=== PATIENT | female | born 1940 | race Caucasian/White ===

== ENCOUNTER 2018-02-22 13:29 | Inpatient (IN) | payer OTHER ==
[2018-02-22] MEDS ORDERED: cefTRIAXone(*) 1 GM in NS 0.9% 50 ML* 50 ML IVPB ONE (13:35)
[2018-02-22] MEDS ORDERED: Ipratropium 0.5MG/2.5ML NEB* 0.5 MG/2.5 ML NEB.SOLN INH ONE (13:35)
[2018-02-22] MEDS ORDERED: methylPREDNISolone 125 MG* 2 ML VIAL IV ONE (13:35)
[2018-02-22] MEDS ORDERED: Albuterol 2.5 MG/3 ML NEB.SOL* (0.083%) INH ONE (13:35)
[2018-02-22] MEDS ORDERED: Azithromycin IV(*) 500 MG in NS 0.9% 250 ML* 250 ML IVPB ONE (13:35)
--- NOTE | 2018-02-22 13:39 | ED ---
Shortness of Breath - HPI Summary HPI Summary: Patient is a 77 y/o F brought in by ambulance w/ c/o SOB and cough productive of green phlegm for the past 3-4 days. She also reports some chest pain with coughing, notes SOB is worsened by exertion. EMS reports that patient had slight wheezing at upper right lobe, 98-99 o2 sat on oxygen. Patient is on 3 L o2 at home normally, increased it to 3.5 L last night. She was seen by PCP for Sx who thought she might have PNA, was prescribed prednisone and amoxicillin. No pain/swelling in legs is reported. She is a former smoker, stopped 19 years ago. PMHx of COPD endorsed, Hx of cardiac issues is denied. On triage, pain is denied, nothing is noted to aggravate/alleviate Sx, and it is noted that patient took her home breathing treatments [employer]. Home medications and allergies are reviewed. - History of Current Complaint Hx Obtained From: Patient Onset/Duration: Lasting Days - 3-4 days, Resolved Timing: Constant Current Severity: None - pain denied Dyspnea At: Exertion Aggrevating Factors: Nothing Alleviating Factors: Nothing Associated Signs & Symptoms: Cough (Productive), Chest Pain w/Cough - Allergy/Home Medications Allergies/Adverse Reactions: Allergies Allergy/AdvReac Type Severity Reaction Status Date / Time No Known Allergies Allergy Verified 04/25/15 21:22 Home Medications: Home Medications Amoxicillin PO (*) [Amoxicillin 500 MG CAP*] 500 mg PO BID 02/22/18 [History Confirmed 02/22/18] Ipratropium 0.5MG/2.5ML NEB* [Atrovent 0.5 MG NEB.SANDEEP*] 0.5 mg INH Q6H PRN 02/22 [History Confirmed 02/22/18] Sertraline* [Zoloft*] 25 mg PO DAILY 02/22/18 [History Confirmed 02/22/18] Umeclidin/Vilant 62.5 MDI(NF) [ANORO 62.5/25 Ellipta DEVICE (NF)] 1 puff INH DAILY 02/22/18 [History Confirmed 02/22/18] predniSONE TAB* [Deltasone 20 MG TAB*] 20 mg PO DAILY 02/22/18 [History Confirmed 02/22/18] PMH/Surg Hx/FS Hx/Imm Hx Respiratory History: Reports: Hx Chronic Obstructive Pulmonary Disease (COPD) Sensory History: Reports: Hx Contacts or Glasses, Hx Hearing Aid, Hx Hearing Problem Opthamlomology History: Reports: Hx Contacts or Glasses - Surgical History Surgery Procedure, Year, and Place: tubaligation - Family History Known Family History: Negative: Blood Disorder - Social History Alcohol Use: None Substance Use Type: Reports: None Smoking Status (MU): Former Smoker Type: Cigarettes Review of Systems Positive: Chest Pain - with cough Positive: Shortness Of Breath, Cough Positive: Other - NEGATIVE - BLE PAIN . Negative: Edema All Other Systems Reviewed And Are Negative: Yes Physical Exam - Summary Physical Exam Summary: Appearance: Well-appearing, Well-nourished, lying in bed Skin: Warm, dry, no obvious rash Eyes: sclera anicteric, no conjunctival pallor ENT: mucous membranes moist, pharynx appears normal Neck: Supple, nontender Respiratory: Mild respiratory distress manifested as tachypnea, patient able to talk in complete sentences. Lung sounds distant, diminished aeration. Cardiovascular: Normal S1, S2. No murmurs. Normal distal pulses in tibial and radial bilaterally. Abdomen: Soft, nontender, normal active bowel sounds present Musculoskeletal: Normal, Strength/ROM Intact Neurological: A&Ox3, awake and alert, mentation is normal, speech is fluent and appropriate Psychiatric: affect is normal, does not appear anxious or depressed Triage Information Reviewed: Yes Vital Signs On Initial Exam: Initial Vitals Temp Pulse Resp BP Pulse Ox 97.9 F 103 22 133/111 97 02/22/18 13:31 02/22/18 13:31 02/22/18 13:31 02/22/18 13:31 02/22/18 13:31 Vital Signs Reviewed: Yes Diagnostics - Laboratory Result Diagrams: 02/23/18 05:39 02/23/18 05:39 Lab Statement: Any lab studies that have been ordered have been reviewed, and results considered in the medical decision making process. - Radiology CXR Radiology Interpretation Completed By: Radiologist Summary of Radiographic Findings: IMPRESSION: #. Advanced chronic obstructive pulmonary disease and emphysema with superimposed acute. pneumonia at the RIGHT lung base. Radiographic follow-up after therapy suggested to assess. for resolution. This report was reviewed by ED physician. - EKG 1354 Cardiac Rate: NL - rate of 95 bpm EKG Rhythm: Sinus Rhythm Summary of EKG Findings: Normal EKG: NSR at 95 BPM, P waves, QRS complex, and T waves are within normal limits, T waves and intervals are normal, no ischemic changes. This is a normal EKG Course/Dx - Course Course Of Treatment: Patient is a 77 y/o F brought in by ambulance w/ c/o SOB and cough productive of green phlegm for the past 3-4 days. She also reports some chest pain with coughing, notes SOB is worsened by exertion. EMS reports that patient had slight wheezing at upper right lobe, 98-99 o2 sat on oxygen. Patient is on 3 L o2 at home normally, increased it to 3.5 L last night. She was seen by PCP for Sx who thought she might have PNA, was prescribed prednisone and amoxicillin. No pain/swelling in legs is reported. She is a former smoker, stopped 19 years ago. PMHx of COPD endorsed, Hx of cardiac issues is denied. On physical exam, mild respiratory distress manifested as tachypnea, patient able to talk in complete sentences. Lung sounds distant, diminished aeration. Normal EKG: NSR at 95 BPM, P waves, QRS complex, and T waves are within normal limits, T waves and intervals are normal, no ischemic changes. This is a normal EKG. Labs showed WBC 17, Hgb 11.8, MPV 6.4, absolute neuts 13.7, absolute monos 2.1, sodium 127, chloride 89, creatinine 0.46, BUN/ creatinine 23.9, glucose 108, lactic acid 0.9, trop 0.01, BNP 46. Influenza A, B was negative. CXR IMPRESSION: #. Advanced chronic obstructive pulmonary disease and emphysema with superimposed acute. pneumonia at the RIGHT lung base. Radiographic follow-up after therapy suggested to assess. for resolution. During ED course, patient received solu-medrol 125 mg IV ED ONCE, Xopenex 1.25 mg/0.5 Ml Neb.sandeep 1.25 mg INH ED ONCE ONE, Atrovent 0.5 mg Neb.Sandeep 0.5 mg INH ED ONCE ONE, ceftriaxone sodium 1 gm in sodium chloride 50 mls @ 100 mls/hr IVPB ED ONCE ONE, Azithromycin 500 mg in sodium chloride 250 mls @ 250 mls/hr IVPB ED ONCE ONE, and albuterol 2.5 mg INH ED ONCE ONE. Patient's case was discussed with Dr. Schmid at 1750, Dr. Schmid accepts patient for admission. - Diagnoses Provider Diagnoses: Pneumonia involving right lung, COPD exacerbation - Physician Notifications Discussed Care of Patient With: Tamiko Schmid Time Discussed With Above Provider: 17:50 Instructed by Provider To: Other - Patient's case was discussed with Dr. Schmid at 1750, Dr. Schmid accepts patient for admission. Discharge - Sign-Out/Discharge Documenting (check all that apply): Patient Departure - admit - Discharge Plan Condition: Good Disposition: ADMITTED TO [facility] - Billing Disposition and Condition Condition: GOOD Disposition: Admitted to [facility] - Attestation Statements Document Initiated by Erica: Yes Documenting Scribe: JAMIL TIAN Provider For Whom Erica is Documenting (Include Credential): SUSHANT SONG MD Scribe Attestation: JAMIL Zuñiga , scribed for SUSHANT SONG MD on 02/23/18 at 1014. Scribe Documentation Reviewed: Yes Provider Attestation: The documentation as recorded by the JAMIL morton accurately reflects the service I personally performed and the decisions made by SUSHANT mondragon MD Status of Scribe Document: Viewed
--- OUTSIDE RECORDS SUMMARY | 2018-02-22 13:51 | XMS REPORT | Continuity of Care Document ---
:1940 External Reference #:[id number] Author Name Christy Frias Care Team Providers Name Role Phone Patricia Valencia F.NJose Ramon Primary Care Physician Unavailable Payers Type Date Identification Numbers Payment Provider Subscriber Policy Number: [id number] [employer] (Ojennifer Wilcox Case Group Name: [id number] [address] [address] PayID: [id number] [place] [address] Advance Directives Description No Information Available Problems Description No Information Family History Date Family Member(s) Problem(s) Comments General Cancer Siblings 11 2 brothers, 2 sisters living Social History Type Date Description Comments Sex Unknown Marital Status Lives With Alone Daughters live nearby Lives With 1 dog Family's, visits Occupation Retired Occupation Territory Sales Representative [facility] Occupation [employer] type[employer] Occupation [employer] Tobacco Use Start: Unknown Former Cigarette 40+ years End: Smoker 1 Pack Daily Smoking Status Reviewed: 02/09/18 Former Cigarette 40+ years Smoker 1 Pack Daily ETOH Use Denies alcohol use Tobacco Use Start: Unknown Patient is a former End: Unknown smoker Recreational Drug Use Denies Drug Use Exercise Type/Frequency Does not exercise Limited by difficulty breathing Allergies, Adverse Reactions, Alerts Description No Known Drug Allergies Medications Medication Date Status Form Strength Qnty SIG Indications Ordering Provider Symbicort Active Aerosol 160-4.5mcg 2 puffs by Annie 000 /Act mouth two Patricia, times per F.N.P. day Spiriva Active Capsules 18mcg 1 puff by Annie Handihaler 000 mouth one Patricia, time per F.N.P. day Sertraline HCL Active Tablets 25mg 1 by mouth [place], 000 one time Patricia, per day F.N.P. Ventolin HFA Active Aerosol 108(90Base Inhale as [place], 000 ) mcg/Act needed Patricia, F.N.P. Ipratropium Active Solution 0.5-2.5(3) Inhale via Verduin, [place] 000 mg/3ML nebulizer CARL Myers rol Sulfate four times per day Essential Oils Active Unknown 000 Immunizations Description No Information Available Vital Signs Date Vital Result Comment 02/09/2018 10:46am Height 64 inches 5'4" Weight 115.38 lb Heart Rate 86 /min BP Systolic Sitting 162 mmHg Rue reg cuff BP Diastolic Sitting 68 mmHg Rue reg cuff Respiratory Rate 20 /min O2 % BldC Oximetry 95 % On O2 at 3 via portable tank BMI (Body Mass Index) 19.8 kg/m2 Neck Circumference in inches 14.5 Results Test Date Facility Test Result H/L Range Note CBC Auto Diff 07/20/2012 [facility] White Blood 8.7 10^3/uL 4.8-10.[address] [place] [address] [phone] Red Blood Count 4.57 10^6/uL 4.0-5.4 Hemoglobin 13.3 g/dL 12.0-16.0 Hematocrit 40 % 35-47 Mean Corpuscular Volume 88 fL 80-97 Mean Corpuscular Hemoglobin 29 pg 27-31 Mean Corpuscular HGB Conc 33 g/dL 31-36 Red Cell Distribution Width 14 % 10.5-15 Platelet Count 233 10^3/uL 150-450 Mean Platelet Volume 7 um3 Low 7.4-10.4 Abs Neutrophils 6.6 10^3/uL 1.5-7.7 Abs Lymphocytes 1.1 10^3/uL 1.0-4.8 Abs Monocytes 0.8 10^3/uL 0-0.8 Abs Eosinophils 0.1 10^3/uL 0-0.6 Abs Basophils 0 10^3/uL 0-0.2 Abs Nucleated RBC 0 10^3/uL Granulocyte % 76.8 % 38-83 Lymphocyte % 12.8 % Low 25-47 Monocyte % 8.8 % 1-9 Eosinophil % 1.3 % 0-6 Basophil % 0.3 % 0-2 Nucleated Red Blood Cells % 0 Basic Metabolic Panel 07/20/2012 [facility] Sodium 138 mmol/L 133-145 [address] [place] [address] [phone] Potassium 3.8 mmol/L 3.5-5.0 Chloride 102 mmol/L 101-111 Co2 Carbon Dioxide 28.0 mmol/L 22-32 Anion Gap 8.0 mmol/L 2-11 Glucose 137 mg/dL High 70-100 Blood Urea Nitrogen 11 mg/dL 6-24 Creatinine 0.70 mg/dL 0.50-1.40 BUN/Creatinine Ratio 15.7 8-20 Calcium 9.2 mg/dL 8.1-9.9 Egfr Non- 83.0 >60 Egfr 106.7 >60 1 Inr/Protime 07/20/2012 [facility] Inr 0.92 0.87-0.97 [address] [place] [address] [phone] 1 Because ethnic data is not always readily available, this report includes an eGFR for both -Americans and non- Americans. The National Kidney Disease Education Program (NKDEP) does not endorse the use of the MDRD equation for patients that are not between the ages of 18 and 70, are , have extremes of body size, muscle mass, or nutritional status, or are non- or non-. According to the National Kidney Foundation, irrespective of diagnosis, the stage of the disease is based on the level of kidney function: Stage Description GFR(mL/min/1.73 m(2)) 1 Kidney damage with normal or decreased GFR 90 2 Kidney damage with mild decrease in GFR 60-89 3 Moderate decrease in GFR 30-59 4 Severe decrease in GFR 15-29 5 Kidney failure <15 (or dialysis) Procedures Date Code Description Status 07/07/2017 14699 Biopsy Skin Lesion Single Completed 07/20/2012 80321 RT Heart Catheritization; Measurement Of Oxygen Saturation Completed 07/20/2012 26728 Echocardiogram, Limited Study Completed 06/28/2012 13492 ECHO Transthoracic, Real-Time 2D With Doppler And Color Completed Flow 06/09/2012 87388 EKG Tracing & Interpretation Completed Encounters Type Date Location Provider Dx Diagnosis Office Visit 04/28/2015 [facility] Grace MarcosKatherin Abbasi, J44.1 Chronic obstructive 12:46p Assoc,pc N.P. pulmonary disease w Hospitalists (acute) exacerbation Office Visit 04/27/2015 [facility] Grace MarcosKatherin Elroy, J44.1 Chronic obstructive 12:45p Assoc,pc NKatherinP. pulmonary disease w Hospitalists (acute) exacerbation Office Visit 04/26/2015 [facility] Jignesh Orona, J44.1 Chronic obstructive 12:44p Assoc,bert Webber pulmonary disease w Hospitalists (acute) exacerbation Office Visit 06/09/2012 [facility], 496 COPD Airway 2:00p Drew Webber, [facility], Obstruction Chronic FSCAI Not Class Elsewhere 272.4 Hyperlipidemia Other Unspec Plan of Treatment 02/09/2018 - Micheline Knox MDJ44.9 Chronic obstructive pulmonary disease, unspecifiedNew Orders:PFTW/Spirometry Vol Pre/Post Bronchdilat Dlco Complete, Ordered: Minute Walk, Ordered: 18R09.02 [id number] Pulmonary hypertension, unspecified
[2018-02-22 14:09] LABS: Hematocrit 35 % (35-47); Hemoglobin 11.8 g/dl (12.0-16.0); Mean Corpuscular HGB Conc 34 g/dl (31-36); Mean Corpuscular Hemoglobin 29 pg (27-31); Mean Corpuscular Volume 85 fL (80-97); Mean Platelet Volume 6.4 fL (7.4-10.4); Platelet Count 337 10^3/ul (150-450); Red Blood Count 4.09 10^6/ul (4.00-5.40); Red Cell Distribution Width 13 % (10.5-15)
[2018-02-22] MEDS ORDERED: NS 0.9% 50 ML* 50 ML ONE (14:16)
[2018-02-22] MEDS ORDERED: Levalbuterol 1.25MG/0.5ML NEB INH ONE (14:16)
[2018-02-22 14:21] LABS: EGFR Non-African American 132.4 (>60)
[2018-02-22 14:56] LABS: ABS Basophils 0 10^3/ul (0-0.2); ABS Eosinophils 0 10^3/ul (0-0.6); ABS Lymphocytes 1.1 10^3/ul (1.0-4.8); ABS Monocytes 2.1 10^3/ul (0-0.8); ABS Neutrophils 13.7 10^3/ul (1.5-7.7); ABS Nucleated RBC 0 10^3/ul; Eosinophil % 0.2 %; Lymphocyte % 6.5 %; Nucleated Red Blood Cells % 0
[2018-02-22] MEDS ORDERED: cefTRIAXone(*) 1 GM ADVAN/BAG ONE (16:09)
[2018-02-22] MEDS ORDERED: Acetaminophen TAB* 325 MG PO PRN (19:48)
[2018-02-22] MEDS ORDERED: Ipratropium 0.5MG/2.5ML NEB* 0.5 MG/2.5 ML NEB.SOLN INH PRN (19:51)
[2018-02-22] MEDS ORDERED: Levalbuterol 1.25MG/0.5ML NEB INH PRN (19:51)
[2018-02-22] MEDS: NS 0.9% 1000 ML* 1,000 ML IV SCH (21:57)
[2018-02-22] MEDS: Heparin VIAL(*) 5000 UNITS/ML VIAL (FIVE THOUSAND) SUBCUT SCH (21:57)
[2018-02-22 22:30] LABS: Urine Appearance Clear; Urine Blood Negative (Negative); Urine Color Straw; Urine Ketones 1+ (Negative); Urine Protein Negative (Negative); Urine Red Blood Cell Trace(0-2/hpf) (Absent); Urine Urobilinogen Negative (Negative); Urine White Blood Cell Trace(0-5/hpf) (Absent)
[2018-02-22] MEDS ORDERED: NS 0.9% 500 ML* 500 ML IV ONE (22:43)
[2018-02-22] MEDS ORDERED: hydrALAZINE IV* 20 MG/ML VIAL ONE (22:48)
[2018-02-22] MEDS: hydrALAZINE IV* 20 MG/ML VIAL IV SLOW PU PRN (22:50)
--- NOTE | 2018-02-23 04:22 | HP ---
CC: [facility], Patricia Jerome NP * HISTORY AND PHYSICAL: DATE OF ADMISSION: 02/22/18 PROVIDER: Eli Castellon NP PRIMARY CARE PROVIDER: Patricia Jerome NP ATTENDING PHYSICIAN WHILE IN THE HOSPITAL: Dr. Elizabeth García * (dictated by Eli Castellon NP). CHIEF COMPLAINT: 1. Shortness of breath. 2. Cough. HISTORY OF PRESENT ILLNESS: Ms. Price is a 77-year-old female with a past medical history of COPD who presented to the emergency room with a 3 to 4-day history of increased shortness of breath. The patient reports that she was seen at her primary care office clinic last Wednesday and placed on amoxicillin and prednisone and has been taking them but has had no improvement in her shortness of breath and cough. So, she presented to the emergency room for further evaluation. She does report that her cough is green to clear and has increased from her baseline. She does have a baseline productive cough with clear secretions due to her COPD. She also reports a fever over the past several days. She denies any chills. She does also report increased fatigue and chest pain with cough and deep breath. She denies any nausea, vomiting, diarrhea. Denies any abdominal pain. Denies any gross hematuria or dysuria. Denies any focal weakness or sensory loss. Denies any visual complaints. Denies any dysphagia, arthralgias or myalgias. Denies any rashes or lesions. Denies any psychosis. Does report some increased anxiety. Given her symptoms of increased shortness of breath, we were asked to see and evaluate her by the emergency room. PAST MEDICAL HISTORY: COPD. PAST SURGICAL HISTORY: D and C. HOME MEDICATIONS: 1. Prednisone 20 mg p.o. daily. 2. Atrovent nebulizer 0.5 mg p.o. inhaled q.6 hours as needed. 3. Amoxicillin 500 mg p.o. b.i.d. 4. Anoro 1 puff inhaled daily. 5. Sertraline 25 mg p.o. daily. ALLERGIES: No known drug allergies. FAMILY HISTORY: Mother and father both with a history of DE. No reported diabetes. Brother with a history of esophageal cancer. Sisters with a history of breast and cervical cancer. SOCIAL HISTORY: The patient quit smoking approximately 18 years ago. Prior to that, she smoked a pack a day for several years. Denies any alcohol or illicit drug use. She lives alone. Surrogate decision maker in the event she is unable to make her own decision is her daughter, Michelle Price. Her phone number is [phone]. She is a full code. REVIEW OF SYSTEMS: There has been no documented fever. The patient does report fevers of 101 at home. Denies any loss of appetite. Does report chest pain with cough and deep breath. Denies any edema. Does report productive cough of green and clear secretions, increased from baseline. Denies any hemoptysis. Does report significant shortness of breath. Denies any nausea, vomiting, diarrhea. Denies any abdominal pain. Denies any hematuria, dysuria. Denies any focal weakness or sensory loss. Denies any visual complaints. Denies any dysphagia. Denies any arthrosis, myalgias, rashes or lesions or prior psychosis. Does report increased anxiety. PHYSICAL EXAMINATION GENERAL: At this time, Ms. Price is a 77-year-old female. She appears in mild respiratory distress, sitting on the stretcher in the emergency room. VITAL SIGNS: Blood pressure 176/93, heart rate was 104, O2 saturations 97%, respirations were 20 to 22, temperature was 97.5. HEENT: Head is atraumatic, normocephalic. Eyes: EOMs are intact. Sclerae anicteric and not pale. Oral mucosa is dry. NECK: Supple. LUNGS: Diminished bilaterally with a few scattered expiratory wheezes and a few scattered rhonchi in the bases. No rales. CARDIAC: S1, S2. Regular rate and rhythm. No murmurs, rubs, or gallops. ABDOMEN: Soft and nontender. Bowel sounds are present x4. EXTREMITIES: Pulses are +2 bilaterally. No edema. She is able to move all 4 extremities with 5/5 strength. She is awake, alert and oriented x3. NEUROLOGIC: Speech is clear. Mentation is intact. No gross focal deficits. SKIN: Intact. DIAGNOSTIC STUDIES/LAB DATA: WBCs are 17.0, RBCs 4.09, hemoglobin 11.8, hematocrit was 35. Sodium 127, potassium 4.4, chloride 89, carbon dioxide was 30. Anion gap was 8, BUN was 11. Creatinine 0.46. Lactic acid was 0.9. Calcium 9.9. AST was 19. ALT was 17. C-reactive protein was 191.47. BNP was 46. Procalcitonin was.1. She was negative for flu A and B. She had a chest x-ray, radiologist impression: Advanced chronic obstructive pulmonary disease and emphysema with superimposed acute pneumonia in the right lung base. The patient currently has a urine that is pending. Blood cultures are pending. Sputum culture is pending. ASSESSMENT AND PLAN: Ms. Price is a 77-year-old female who presented to the emergency room with complaints of increased shortness of breath for 3 to 4 days and failed outpatient antibiotic and prednisone treatment. She will be admitted inpatient status for: 1. Pneumonia. Chest x-ray shows right lower lobe pneumonia. She does have an elevated white count. I suspect that this is due to steroid use she was receiving for the past several days as an outpatient as there is no shift or bands, but this also could have elevation due to her pneumonia. Blood cultures are currently pending. I will treat her with ceftriaxone and azithromycin. UA and culture are currently pending. Urine for Legionella and Strep pneumoniae are currently pending. I will place her on prednisone 40 mg p.o. daily starting tomorrow. She can have Xopenex nebulizer as needed for shortness of breath. 2. Chronic obstructive pulmonary disease. We will continue her on prednisone and nebulizers as needed for shortness of breath and O2 support to maintain O2 saturations above 92. 3. Depression/anxiety. She will continue on sertraline as previously prescribed. 4. FEN. She can have a regular diet. 5. Code status is full code. 6. DVT prophylaxis: I will place her on heparin subcu. TIME SPENT: Time spent on this admission was 60 minutes, greater than half that time was spent [id number] with the patient and her daughter obtaining my history and physical, the other half the time was spent going over my plan of care and implementing my plan of care. I have discussed this with my attending, Dr. Elizabeth García; she is in agreement with my plan. ELI CASTELLON, ALTAGRACIA [id number]/[facility] #: [id number] ADRIANNE
[2018-02-23] MEDS: NS 0.9% 1000 ML* 1,000 ML IV SCH ×2 (04:33→15:29)
[2018-02-23] MEDS: Heparin VIAL(*) 5000 UNITS/ML VIAL (FIVE THOUSAND) SUBCUT SCH ×3 (05:22→21:04)
[2018-02-23 06:11] LABS: Hematocrit 32 % (35-47); Hemoglobin 10.7 g/dl (12.0-16.0); Mean Corpuscular HGB Conc 34 g/dl (31-36); Mean Corpuscular Hemoglobin 29 pg (27-31); Mean Corpuscular Volume 86 fL (80-97); Mean Platelet Volume 6.7 fL (7.4-10.4); Platelet Count 296 10^3/ul (150-450); Red Blood Count 3.71 10^6/ul (4.00-5.40); Red Cell Distribution Width 13 % (10.5-15); White Blood Count 12.3 10^3/ul (3.5-10.8)
[2018-02-23 06:16] LABS: ABS Basophils 0 10^3/ul (0-0.2); ABS Eosinophils 0 10^3/ul (0-0.6); ABS Lymphocytes 0.7 10^3/ul (1.0-4.8); ABS Monocytes 1.6 10^3/ul (0-0.8); ABS Nucleated RBC 0 10^3/ul; Eosinophil % 0 %; Lymphocyte % 5.5 %; Nucleated Red Blood Cells % 0
[2018-02-23] MEDS: PTO:Umeclidin/Vilant 62.5 MDI 62.5/25 mcg 14 INH ELLIPTA DEVICE INH SCH ×2 (07:50→10:15)
[2018-02-23 09:41] LABS: EGFR Non-African American 151.2 (>60)
[2018-02-23] MEDS: predniSONE TAB* 20 MG PO SCH (09:55)
[2018-02-23] MEDS: Sertraline* 25 MG TAB PO SCH (09:56)
[2018-02-23] MEDS ORDERED: cefTRIAXone(*) 1 GM in NS 0.9% 50 ML* 50 ML IVPB ONE (14:00)
[2018-02-23] MEDS: Azithromycin IV(*) 500 MG in NS 0.9% 250 ML* 250 ML IVPB SCH (15:29)
--- NOTE | 2018-02-23 18:27 | PN ---
Subjective Date of Service: 02/23/18 Interval History: Denies chest pain, reports shortness of breath is improving. Denies abd pain n/ v/d. Denies fever or chills Family History: Unchanged from Admission Social History: Unchanged from Admission Past Medical History: Unchanged from Admission Objective Active Medications: Acetaminophen (Tylenol Tab*) 650 mg PO Q4H PRN PRN Reason: FEVER/PAIN Heparin Sodium (Porcine) (Heparin Vial(*)) 5,000 units SUBCUT Q8HR [facility] Last Admin: 02/23/18 15:29 Dose: 5,000 units Hydralazine HCl (Apresoline Iv*) 5 mg IV SLOW PU Q6H PRN PRN Reason: Systolic Bp Greater Than:180 Last Admin: 02/22/18 22:50 Dose: 5 mg Azithromycin 500 mg/ Sodium (Chloride) 250 mls @ 250 mls/hr IVPB Q24H [facility] Last Admin: 02/23/18 15:29 Dose: 250 mls/hr Ipratropium [place] (Atrovent 0.5 Mg Neb.Any*) 0.5 mg INH Q6H PRN PRN Reason: SOB/WHEEZING Levalbuterol HCl (Xopenex 1.25 Mg/0.5 Ml Neb.Any*) 1.25 mg INH Q4H PRN PRN Reason: SOB/WHEEZING Prednisone (Deltasone Tab*) 40 mg PO DAILY [facility] Last Admin: 02/23/18 09:55 Dose: 40 mg Sertraline HCl (Zoloft*) 25 mg PO DAILY [facility] Last Admin: 02/23/18 09:56 Dose: 25 mg Umeclidinium/Vilanterol (Anoro 62.5/25 Ellipta Device (Nf)) 1 inh INH DAILY [facility] Last Admin: 02/23/18 10:15 Dose: 1 inh Vital Signs - 8 hr 02/23/18 02/23/18 02/23/18 10:59 15:40 15:55 Temperature 97.5 F 97.7 F Pulse Rate 97 103 Respiratory 18 22 Rate Blood Pressure 144/117 194/81 138/82 (mmHg) O2 Sat by Pulse 100 99 Oximetry Oxygen Devices in Use Now: Nasal Cannula Appearance: alert oriented x 3 appears comfortable lying in bed Eyes: No Scleral Icterus Ears/Nose/Mouth/Throat: Clear Oropharnyx, Mucous Membranes Moist Neck: NL Appearance and Movements; NL JVP, Trachea Midline Respiratory: Symmetrical Chest Expansion and Respiratory Effort, - - diminshed bilat , few scattered rhonchi in the bases bilat, scattered exp wheezes bilat Cardiovascular: NL Sounds; No Murmurs; No JVD Abdominal: NL Sounds; No Tenderness; No Distention Extremities: No Edema, No Clubbing, Cyanosis Skin: No Rash or Ulcers Neurological: Alert and Oriented x 3 Nutrition: Taking PO's Result Diagrams: 02/23/18 05:39 02/23/18 05:39 Microbiology and Other Data: Microbiology 02/22/18 16:15 Legionella Urinary Antigen - Final Urine Negative Legionella Antigen Streptococcus pneumoniae Ag Screen - Final Negative S. pneumo Antigen 02/22/18 15:20 Influenza Types A,B Antigen - Final Nasopharyngeal Specimen received for Influenza A/B Molecular testing Assess/Plan/Problems-Billing Assessment: Ms. Price is a 77 y.o female with a pmhx significant for COPD that presented to the emergency room with increased shortness of breath. found to have pneumonia. - Patient Problems (1) Pneumonia Current Visit: Yes Status: Acute Code(s): J18.9 - PNEUMONIA, UNSPECIFIED ORGANISM SNOMED Code(s): 831415732 Comment: - continue azithromycin and ceftriaxone - nebs/ inhalers as needed for shortness of breath - prednisone 40 mg - blood cultures pending - Patient with leukocytosis - suspect this is realted to prednisone and current pneumonia - legionella and strep pneumo negative (2) COPD exacerbation Current Visit: No Status: Acute Code(s): J44.1 - CHRONIC OBSTRUCTIVE PULMONARY DISEASE W (ACUTE) EXACERBATION SNOMED Code(s): 072750602410919 Comment: Prednisone 40 mg po daily - wheezing improving - continue nebulizers/ inhaler as ordered (3) Hyponatremia Current Visit: Yes Status: Acute Code(s): E87.1 - HYPO-OSMOLALITY AND HYPONATREMIA SNOMED Code(s): 24201220 Comment: mild hyponatremia suspect this is related to dehydration - improved with ivf (4) DVT prophylaxis Current Visit: No Status: Acute Code(s): VRX3074 - SNOMED Code(s): 460633141 Comment: SQ Heparin (5) Full code status Current Visit: No Status: Acute Code(s): Z78.9 - OTHER SPECIFIED HEALTH STATUS SNOMED Code(s): 108496105 Status and Disposition: discharge home when medically stable
[2018-02-23] MEDS: Albuterol HFA INHALER* 8 gm MDI INH PRN (23:54)
[2018-02-24] MEDS: Heparin VIAL(*) 5000 UNITS/ML VIAL (FIVE THOUSAND) SUBCUT SCH ×3 (05:22→20:53)
[2018-02-24] MEDS: Albuterol HFA INHALER* 8 gm MDI INH PRN (05:25)
[2018-02-24] MEDS: PTO:Umeclidin/Vilant 62.5 MDI 62.5/25 mcg 14 INH ELLIPTA DEVICE INH SCH (08:27)
[2018-02-24] MEDS: Sertraline* 25 MG TAB PO SCH (09:58)
[2018-02-24] MEDS: predniSONE TAB* 20 MG PO SCH (09:58)
[2018-02-24] MEDS: cefTRIAXone(*) 1 GM in NS 0.9% 50 ML* 50 ML IVPB SCH (14:41)
[2018-02-24] MEDS: Azithromycin IV(*) 500 MG in NS 0.9% 250 ML* 250 ML IVPB SCH (16:17)
--- NOTE | 2018-02-24 17:30 | PN ---
Subjective Date of Service: 02/24/18 Interval History: Pt resting comfortably in bed. Says shortness of breath is improving. Is on home O2 at baseline. Reports coughing up greenish sputum, which makes her breathing feel better. Denies chest pain, headache, dizziness, abdominal pain, nausea/vomiting. She has been eating and drinking, but doesn't have much of an appetite. Family History: Unchanged from Admission Social History: Unchanged from Admission Past Medical History: Unchanged from Admission Objective Active Medications: Acetaminophen (Tylenol Tab*) 650 mg PO Q4H PRN PRN Reason: FEVER/PAIN Albuterol (Ventolin Hfa Inhaler*) 2 puff INH Q4H PRN PRN Reason: SOB/WHEEZING Last Admin: 02/24/18 05:25 Dose: 2 puff Heparin Sodium (Porcine) (Heparin Vial(*)) 5,000 units SUBCUT Q8HR REPLACED BY [facility] Last Admin: 02/24/18 14:47 Dose: 5,000 units Hydralazine HCl (Apresoline Iv*) 5 mg IV SLOW PU Q6H PRN PRN Reason: Systolic Bp Greater Than:180 Last Admin: 02/22/18 22:50 Dose: 5 mg Azithromycin 500 mg/ Sodium (Chloride) 250 mls @ 250 mls/hr IVPB Q24H REPLACED BY [facility] Last Admin: 02/24/18 16:17 Dose: 250 mls/hr Ceftriaxone Sodium 1 gm/ (Sodium Chloride) 50 mls @ 200 mls/hr IVPB Q24H REPLACED BY [facility] Last Admin: 02/24/18 14:41 Dose: 200 mls/hr Ipratropium [place] (Atrovent 0.5 Mg Neb.Any*) 0.5 mg INH Q6H PRN PRN Reason: SOB/WHEEZING Levalbuterol HCl (Xopenex 1.25 Mg/0.5 Ml Neb.Any*) 1.25 mg INH Q4H PRN PRN Reason: SOB/WHEEZING Prednisone (Deltasone Tab*) 40 mg PO DAILY REPLACED BY [facility] Last Admin: 02/24/18 09:58 Dose: 40 mg Sertraline HCl (Zoloft*) 25 mg PO DAILY REPLACED BY [facility] Last Admin: 02/24/18 09:58 Dose: 25 mg Umeclidinium/Vilanterol (Anoro 62.5/25 Ellipta Device (Nf)) 1 inh INH DAILY REPLACED BY [facility] Last Admin: 02/24/18 08:27 Dose: 1 inh Vital Signs - 8 hr 02/24/18 02/24/18 10:59 11:15 Temperature 97.9 F Pulse Rate 93 Respiratory 16 18 Rate Blood Pressure 158/67 (mmHg) O2 Sat by Pulse 99 Oximetry Oxygen Devices in Use Now: Nasal Cannula Eyes: No Scleral Icterus, PERRLA Ears/Nose/Mouth/Throat: NL Teeth, Lips, Gums, Mucous Membranes Moist Neck: NL Appearance and Movements; NL JVP, Trachea Midline Respiratory: Symmetrical Chest Expansion and Respiratory Effort, - - Lung sounds diminished. No wheezes auscultated. Cardiovascular: NL Sounds; No Murmurs; No JVD, RRR, No Edema Extremities: No Edema, No Clubbing, Cyanosis Skin: No Rash or Ulcers Neurological: Alert and Oriented x 3 Result Diagrams: 02/23/18 05:39 02/23/18 05:39 Microbiology and Other Data: Microbiology 02/22/18 16:15 Legionella Urinary Antigen - Final Urine Negative Legionella Antigen Streptococcus pneumoniae Ag Screen - Final Negative S. pneumo Antigen 02/22/18 15:20 Influenza Types A,B Antigen - Final Nasopharyngeal Specimen received for Influenza A/B Molecular testing Assess/Plan/Problems-Billing Assessment: Ms. Price is a 77 y.o female with a pmhx significant for COPD that presented to the emergency room with increased shortness of breath. Found to have pneumonia. - Patient Problems (1) Pneumonia Current Visit: Yes Status: Acute Code(s): J18.9 - PNEUMONIA, UNSPECIFIED ORGANISM SNOMED Code(s): 552114790 Comment: - Shortness of breath improving. Afebrile. Leukocytosis trending down - Continue azithromycin and ceftriaxone, prednisone 40 mg. - Continue scheduled Anoro, prn albuterol, prn nebs - Blood cultures negative to date - Legionella and strep pneumo negative - CXR with RLL consolidation consistent with PNA (2) COPD exacerbation Current Visit: No Status: Acute Code(s): J44.1 - CHRONIC OBSTRUCTIVE PULMONARY DISEASE W (ACUTE) EXACERBATION SNOMED Code(s): 021557460116032 Comment: Prednisone 40 mg po daily - wheezing improving - continue nebulizers/ inhaler as ordered (3) Hyponatremia Current Visit: Yes Status: Acute Code(s): E87.1 - HYPO-OSMOLALITY AND HYPONATREMIA SNOMED Code(s): 32973424 Comment: mild hyponatremia suspect this is related to dehydration - improved with ivf (4) DVT prophylaxis Current Visit: No Status: Acute Code(s): BWI8635 - SNOMED Code(s): 008384136 Comment: SQ Heparin (5) Full code status Current Visit: No Status: Acute Code(s): Z78.9 - OTHER SPECIFIED HEALTH STATUS SNOMED Code(s): 325041288 Status and Disposition: discharge home when medically stable
[2018-02-24] MEDS: hydrALAZINE IV* 20 MG/ML VIAL IV SLOW PU PRN (20:25)
[2018-02-25] MEDS: Heparin VIAL(*) 5000 UNITS/ML VIAL (FIVE THOUSAND) SUBCUT SCH ×2 (05:54→14:03)
[2018-02-25 06:23] LABS: ABS Basophils 0 10^3/ul (0-0.2); ABS Eosinophils 0.1 10^3/ul (0-0.6); ABS Lymphocytes 1.6 10^3/ul (1.0-4.8); ABS Monocytes 1.4 10^3/ul (0-0.8); ABS Neutrophils 5.2 10^3/ul (1.5-7.7); ABS Nucleated RBC 0 10^3/ul; Hematocrit 34 % (35-47); Hemoglobin 11.4 g/dl (12.0-16.0); Lymphocyte % 19.7 %; Mean Corpuscular HGB Conc 34 g/dl (31-36); Mean Corpuscular Hemoglobin 29 pg (27-31); Mean Corpuscular Volume 85 fL (80-97); Nucleated Red Blood Cells % 0.1; Platelet Count 409 10^3/ul (150-450); Red Blood Count 4.01 10^6/ul (4.00-5.40); Red Cell Distribution Width 13 % (10.5-15); White Blood Count 8.3 10^3/ul (3.5-10.8)
[2018-02-25 06:42] LABS: EGFR Non-African American 132.4 (>60)
[2018-02-25] MEDS: PTO:Umeclidin/Vilant 62.5 MDI 62.5/25 mcg 14 INH ELLIPTA DEVICE INH SCH (08:05)
[2018-02-25] MEDS: Sertraline* 25 MG TAB PO SCH (09:49)
[2018-02-25] MEDS: predniSONE TAB* 20 MG PO SCH (09:49)
[2018-02-25] MEDS: cefTRIAXone(*) 1 GM in NS 0.9% 50 ML* 50 ML IVPB SCH (14:00)
--- NOTE | 2018-02-25 14:32 | CONSULT ---
Palliative / Hospice Consult Ordering Provider: Elizabeth García - PCP Didier Barros Referal Reason: Clarification of code status - Subjective Code Status: Full Code Advance Directives Location: No Advance Directives MOLST Part A Completed: No MOLST Part E Completed:: No HCP Completed: No - History or Present Illness History or Present Illness: 77 yo female, who presents with SOB and cough. She has a history of advanced COPD on CXR and is on 3L O2 at home. Depression/anxiety and hyponatremia. She was diagnosis with RLL pneumonia and dehydration. She has done well in the hospital with IV antibiotics and fluid. Her appetite has been poor but has perked up since her hospitalization. Spent a long time talking with patient. She lives by herself and her daughter lives next door and checks in with her daily. Patient is a retired [employer] from a retirement and is familar with CPR in intubation. Lab Values: Abnormal Lab Results 02/25/18 02/25/18 06:08 06:08 WBC 8.3 RBC 4.01 Hgb 11.4 L Hct 34 L MCV 85 MCH 29 MCHC 34 RDW 13 Plt Count 409 MPV 6.0 L Neut % (Auto) 62.9 Lymph % (Auto) 19.7 [place] % (Auto) 16.3 Eos % (Auto) 1.0 Baso % (Auto) 0.1 Absolute Neuts (auto) 5.2 Absolute Lymphs (auto) 1.6 Absolute Monos (auto) 1.4 H Absolute Eos (auto) 0.1 Absolute Basos (auto) 0 Absolute Nucleated RBC 0 Nucleated RBC % 0.1 Sodium 133 L Potassium 3.9 Chloride 95 L Carbon Dioxide 32 Anion Gap 6 BUN 7 Creatinine 0.46 L Est GFR ( Amer) 160.2 Est GFR (Non-Af Amer) 132.4 BUN/Creatinine Ratio 15.2 Glucose 106 H Calcium 9.1 Laboratory Last Values WBC 8.3 10^3/ul (3.5-10.8) 02/25/18 06:08 RBC 4.01 10^6/ul (4.00-5.40) 02/25/18 06:08 Hgb 11.4 g/dl (12.0-16.0) L 02/25/18 06:08 Hct 34 % (35-47) L 02/25/18 06:08 MCV 85 fL (80-97) 02/25/18 06:08 MCH 29 pg (27-31) 02/25/18 06:08 MCHC 34 g/dl (31-36) 02/25/18 06:08 RDW 13 % (10.5-15) 02/25/18 06:08 Plt Count 409 10^3/ul (150-450) 02/25/18 06:08 MPV 6.0 fL (7.4-10.4) L 02/25/18 06:08 Neut % (Auto) 62.9 % 02/25/18 06:08 Lymph % (Auto) 19.7 % 02/25/18 06:08 [place] % (Auto) 16.3 % 02/25/18 06:08 Eos % (Auto) 1.0 % 02/25/18 06:08 Baso % (Auto) 0.1 % 02/25/18 06:08 Absolute Neuts (auto) 5.2 10^3/ul (1.5-7.7) 02/25/18 06:08 Absolute Lymphs (auto) 1.6 10^3/ul (1.0-4.8) 02/25/18 06:08 Absolute Monos (auto) 1.4 10^3/ul (0-0.8) H 02/25/18 06:08 Absolute Eos (auto) 0.1 10^3/ul (0-0.6) 02/25/18 06:08 Absolute Basos (auto) 0 10^3/ul (0-0.2) 02/25/18 06:08 Absolute Nucleated RBC 0 10^3/ul 02/25/18 06:08 Nucleated RBC % 0.1 02/25/18 06:08 Sodium 133 mmol/L (135-145) L 02/25/18 06:08 Potassium 3.9 mmol/L (3.5-5.0) 02/25/18 06:08 Chloride 95 mmol/L (101-111) L 02/25/18 06:08 Carbon Dioxide 32 mmol/L (22-32) 02/25/18 06:08 Anion Gap 6 mmol/L (2-11) 02/25/18 06:08 BUN 7 mg/dL (6-24) 02/25/18 06:08 Creatinine 0.46 mg/dL (0.51-0.95) L 02/25/18 06:08 Est GFR ( Amer) 160.2 (>60) 02/25/18 06:08 Est GFR (Non-Af Amer) 132.4 (>60) 02/25/18 06:08 BUN/Creatinine Ratio 15.2 (8-20) 02/25/18 06:08 Glucose 106 mg/dL (70-100) H 02/25/18 06:08 Lactic Acid 0.9 mmol/L (0.5-2.0) 02/22/18 13:53 Calcium 9.1 mg/dL (8.6-10.3) 02/25/18 06:08 Total Bilirubin 0.70 mg/dL (0.2-1.0) 02/22/18 13:53 AST 19 U/L (13-39) 02/22/18 13:53 ALT 17 U/L (7-52) 02/22/18 13:53 Alkaline Phosphatase 91 U/L (34-104) 02/22/18 13:53 Troponin I 0.01 ng/mL (<0.04) 02/22/18 13:53 C-Reactive Protein 191.47 mg/L (<8.01) H 02/22/18 20:23 B-Natriuretic Peptide 46 pg/mL (<=100) 02/22/18 13:53 Total Protein 6.7 g/dL (6.4-8.9) 02/22/18 13:53 Albumin 3.9 g/dL (3.2-5.2) 02/22/18 13:53 Globulin 2.8 g/dL (2-4) 02/22/18 13:53 Albumin/Globulin Ratio 1.4 (1-3) 02/22/18 13:53 Procalcitonin 0.1 ng/mL (<0.6) 02/22/18 20:23 Urine Color Straw 02/22/18 16:15 Urine Appearance Clear 02/22/18 16:15 Urine pH 6.0 (5-9) 02/22/18 16:15 Ur Specific [place] 1.010 (1.010-1.030) 02/22/18 16:15 Urine Protein Negative (Negative) 02/22/18 16:15 Urine Ketones 1+ (Negative) A 02/22/18 16:15 Urine Blood Negative (Negative) 02/22/18 16:15 Urine Nitrate Negative (Negative) 02/22/18 16:15 Urine Bilirubin Negative (Negative) 02/22/18 16:15 Urine Urobilinogen Negative (Negative) 02/22/18 16:15 Ur Leukocyte Esterase Trace (Negative) A 02/22/18 16:15 Urine WBC (Auto) Trace(0-5/hpf) (Absent) 02/22/18 16:15 Urine RBC (Auto) Trace(0-2/hpf) (Absent) 02/22/18 16:15 Ur Squamous Epith Cells Present (Absent) A 02/22/18 16:15 Urine Bacteria Absent (Absent) 02/22/18 16:15 Hyaline Casts Present (Absent) A 02/22/18 16:15 Urine Glucose Negative (Negative) 02/22/18 16:15 Urine Ascorbic Acid * (Negative) A 02/22/18 16:15 Influenza A (Rapid) Negative (Negative) 02/22/18 15:43 Influenza B (Rapid) Negative (Negative) 02/22/18 15:43 - Objective Active Medications: Acetaminophen (Tylenol Tab*) 650 mg PO Q4H PRN PRN Reason: FEVER/PAIN Albuterol (Ventolin Hfa Inhaler*) 2 puff INH Q4H PRN PRN Reason: SOB/WHEEZING Last Admin: 02/24/18 05:25 Dose: 2 puff Amlodipine Besylate (Norvasc Tab*) 5 mg PO DAILY [facility] Heparin Sodium (Porcine) (Heparin Vial(*)) 5,000 units SUBCUT Q8HR [facility] Last Admin: 02/25/18 14:03 Dose: 5,000 units Hydralazine HCl (Apresoline Iv*) 5 mg IV SLOW PU Q6H PRN PRN Reason: Systolic Bp Greater Than:180 Last Admin: 02/24/18 20:25 Dose: 5 mg Azithromycin 500 mg/ Sodium (Chloride) 250 mls @ 250 mls/hr IVPB Q24H [facility] Last Admin: 02/24/18 16:17 Dose: 250 mls/hr Ceftriaxone Sodium 1 gm/ (Sodium Chloride) 50 mls @ 200 mls/hr IVPB Q24H [facility] Last Admin: 02/25/18 14:00 Dose: 200 mls/hr Ipratropium [place] (Atrovent 0.5 Mg Neb.Any*) 0.5 mg INH Q6H PRN PRN Reason: SOB/WHEEZING Levalbuterol HCl (Xopenex 1.25 Mg/0.5 Ml Neb.Any*) 1.25 mg INH Q4H PRN PRN Reason: SOB/WHEEZING Prednisone (Deltasone Tab*) 40 mg PO DAILY [facility] Last Admin: 02/25/18 09:49 Dose: 40 mg Sertraline HCl (Zoloft*) 25 mg PO DAILY [facility] Last Admin: 02/25/18 09:49 Dose: 25 mg Umeclidinium/Vilanterol (Anoro 62.5/25 Ellipta Device (Nf)) 1 inh INH DAILY [facility] Last Admin: 02/25/18 08:05 Dose: 1 inh Vital Signs: Vital Signs: Temp Pulse Resp BP Pulse Ox 98.3 F 91 16 188/69 100 02/25/18 11:33 02/25/18 11:33 02/25/18 11:33 02/25/18 11:33 02/25/18 11:33 Patient Weight: Weight 61.961 kg Intake and Output: Intake & Output 02/23/18 02/24/18 02/25/18 02/26/18 06:59 06:59 06:59 06:59 Intake Total 300 3529 789 1100 Output Total 800 Balance 300 3529 789 300 Weight 61.961 kg Intake: IV Fluids 300 946 9 NS 946 9 IVPB 53 60 ceftriaxone 53 60 Oral 0 2530 720 1100 Output: Urine 800 Other: Estimated Void Large Large Large # Bowel Movements 1 0 0 Estimated Stool Amount Small Small # Voids 1 1 1 ADLs: Meal Record Start: 02/22/18 21: 06 Freq: DAILY@0900,1400,1800 Status: Active Protocol: Created 02/22/18 21:06 System (Rec: 02/22/18 21:06 System MED-C16) Document 02/23/18 09:00 [id number] (Rec: 02/23/18 10:27 [id number] MED-C09) Document 02/23/18 14:00 [id number] (Rec: 02/23/18 14:51 [id number] MED-C11) Document 02/23/18 18:00 [id number] (Rec: 02/23/18 21:45 [id number] MED-C04) Document 02/24/18 09:13 [id number] (Rec: 02/24/18 09:13 [id number] MED-C14) Document 02/24/18 14:00 [id number] (Rec: 02/24/18 14:05 [id number] MED-C09) Document 02/24/18 18:00 [id number] (Rec: 02/24/18 18:35 [id number] MED-C09) Document 02/25/18 09:00 [id number] (Rec: 02/25/18 12:09 [id number] MED-C14) Document 02/25/18 13:57 [id number] (Rec: 02/25/18 13:58 [id number] MED-C14) Intake and Output Start: 02/22/18 13: 34 Freq: Status: Active Protocol: Created 02/22/18 13:34 System (Rec: 02/22/18 13:34 System [id number]) Intake and Output Start: 02/22/18 21: 06 Freq: DAILY@0600,1400,2200 Status: Active Protocol: Created 02/22/18 21:06 System (Rec: 02/22/18 21:06 System MED-C16) Document 02/22/18 22:40 [id number] (Rec: 02/22/18 22:41 [id number] MED-C13) Document 02/23/18 05:53 [id number] (Rec: 02/23/18 05:54 [id number] MED-C11) Document 02/23/18 12:45 [id number] (Rec: 02/23/18 12:45 [id number] MED-C09) Document 02/23/18 14:00 [id number] (Rec: 02/23/18 14:51 [id number] MED-C11) Document 02/23/18 21:51 [id number] (Rec: 02/23/18 21:53 [id number] MED-C04) Document 02/24/18 00:22 [id number] (Rec: 02/24/18 00:22 [id number] MED-C09) Document 02/24/18 05:44 [id number] (Rec: 02/24/18 05:45 [id number] MED-C09) Document 02/24/18 21:54 [id number] (Rec: 02/24/18 21:56 [id number] MED-C16) Document 02/25/18 05:27 [id number] (Rec: 02/25/18 05:36 [id number] MED-C09) Document 02/25/18 14:00 [id number] (Rec: 02/25/18 14:02 [id number] MED-C14) Head: Normal Eyes: No Scleral Icterus, PERRLA Ears/Nose/Mouth/Throat: NL Teeth, Lips, Gums, Mucous Membranes Moist Neck: NL Appearance and Movements; NL JVP, Trachea Midline Cardiovascular: NL Sounds; No Murmurs; No JVD, RRR, No Edema Abdominal: NL Sounds; No Tenderness; No Distention Extremities: No Edema, No Clubbing, Cyanosis Neurological: Alert and Oriented x 3 - Assessment Assessment: 77 yo female with pneumonia and COPD with no change to her code status at this time - Plan Consult Plan (MU): Palliative Plan: Spent a long time discussing COPD disease progression with the patient, how it is a stepwise decline. At this time she wants to talk with her daughters one of whom is an EMT. She wants CPR and intubation as of now. She wants to stay at home for as long as possible and go to a retirement if she needs more assistance. At this time she handles all her ADLs by herself. - Time On Unit Date of Evaluation: 02/25/18 Hospice Consult Time in: 12:30 Hospice Consult Time Out: 14:00 Hospice Consult Time Total: 90 > 50% of Time Spend In Counseling or Coordinating Care: Yes
[2018-02-25] MEDS ORDERED: amLODIPine TAB* 5 MG PO SCH (15:00)
--- NOTE | 2018-02-25 15:11 | PN ---
Subjective Date of Service: 02/25/18 Interval History: Pt reports shortness of breath is improved and feels she is at her baseline both at rest and with exertion on her baseline 3L of O2. Says cough has improved and denies chest pain. Reports improved appetite. She is eager to go home. Denies headache, dizziness, abdominal pain, nausea/vomiting, numbness or tingling in extremities. Family History: Unchanged from Admission Social History: Unchanged from Admission Past Medical History: Unchanged from Admission Objective Active Medications: Acetaminophen (Tylenol Tab*) 650 mg PO Q4H PRN PRN Reason: FEVER/PAIN Albuterol (Ventolin Hfa Inhaler*) 2 puff INH Q4H PRN PRN Reason: SOB/WHEEZING Last Admin: 02/24/18 05:25 Dose: 2 puff Amlodipine Besylate (Norvasc Tab*) 5 mg PO DAILY [facility] Heparin Sodium (Porcine) (Heparin Vial(*)) 5,000 units SUBCUT Q8HR [facility] Last Admin: 02/25/18 14:03 Dose: 5,000 units Hydralazine HCl (Apresoline Iv*) 5 mg IV SLOW PU Q6H PRN PRN Reason: Systolic Bp Greater Than:180 Last Admin: 02/24/18 20:25 Dose: 5 mg Azithromycin 500 mg/ Sodium (Chloride) 250 mls @ 250 mls/hr IVPB Q24H [facility] Last Admin: 02/24/18 16:17 Dose: 250 mls/hr Ceftriaxone Sodium 1 gm/ (Sodium Chloride) 50 mls @ 200 mls/hr IVPB Q24H [facility] Last Admin: 02/25/18 14:00 Dose: 200 mls/hr Ipratropium [place] (Atrovent 0.5 Mg Neb.Any*) 0.5 mg INH Q6H PRN PRN Reason: SOB/WHEEZING Levalbuterol HCl (Xopenex 1.25 Mg/0.5 Ml Neb.Any*) 1.25 mg INH Q4H PRN PRN Reason: SOB/WHEEZING Prednisone (Deltasone Tab*) 40 mg PO DAILY [facility] Last Admin: 02/25/18 09:49 Dose: 40 mg Sertraline HCl (Zoloft*) 25 mg PO DAILY [facility] Last Admin: 02/25/18 09:49 Dose: 25 mg Umeclidinium/Vilanterol (Anoro 62.5/25 Ellipta Device (Nf)) 1 inh INH DAILY [facility] Last Admin: 02/25/18 08:05 Dose: 1 inh Vital Signs - 8 hr 02/25/18 02/25/18 02/25/18 08:00 08:13 11:33 Temperature 97.9 F 98.3 F Pulse Rate 93 91 Respiratory 16 16 16 Rate Blood Pressure 179/61 188/69 (mmHg) O2 Sat by Pulse 100 100 Oximetry Oxygen Devices in Use Now: Nasal Cannula Eyes: No Scleral Icterus, PERRLA Ears/Nose/Mouth/Throat: NL Teeth, Lips, Gums, Mucous Membranes Moist Neck: NL Appearance and Movements; NL JVP, Trachea Midline Respiratory: Symmetrical Chest Expansion and Respiratory Effort, Clear to Auscultation, - - Normal work of breathing Cardiovascular: NL Sounds; No Murmurs; No JVD, RRR, No Edema Abdominal: NL Sounds; No Tenderness; No Distention, No Hepatosplenomegaly Extremities: No Edema Neurological: Alert and Oriented x 3, NL Muscle Strength and Tone Lines/Tubes/Other Access: Clean, Dry and Intact Peripheral IV Nutrition: Taking PO's Result Diagrams: 02/25/18 06:08 02/25/18 06:08 Microbiology and Other Data: Microbiology 02/22/18 16:15 Legionella Urinary Antigen - Final Urine Negative Legionella Antigen Streptococcus pneumoniae Ag Screen - Final Negative S. pneumo Antigen 02/22/18 15:20 Influenza Types A,B Antigen - Final Nasopharyngeal Specimen received for Influenza A/B Molecular testing Assess/Plan/Problems-Billing Assessment: Ms. Price is a 77 y.o female with a pmhx significant for COPD that presented to the emergency room with increased shortness of breath. Found to have pneumonia. - Patient Problems (1) Pneumonia Current Visit: Yes Status: Acute Code(s): J18.9 - PNEUMONIA, UNSPECIFIED ORGANISM SNOMED Code(s): 057882125 Comment: - Shortness of breath improved. Pt feels she is at her baseline both at rest and with exhertion on her home O2 (3-4L). Afebrile and leukocytosis has resolved. - Continue azithromycin and ceftriaxone, prednisone 40 mg. - Continue scheduled Anoro, prn albuterol, prn nebs - Blood cultures negative to date - Legionella and strep pneumo negative. Flu negative - CXR with RLL consolidation consistent with PNA (2) COPD exacerbation Current Visit: No Status: Acute Code(s): J44.1 - CHRONIC OBSTRUCTIVE PULMONARY DISEASE W (ACUTE) EXACERBATION SNOMED Code(s): 499278531575112 Comment: - Continue Prednisone 40 mg po daily to complete 5 day course. No wheezing on exam today. - Continue nebulizers/ inhaler as ordered (3) Hypertension Current Visit: Yes Status: Acute Code(s): I10 - ESSENTIAL (PRIMARY) HYPERTENSION SNOMED Code(s): 09814068 Comment: - Pt has been hypertensive throughout this admission, at times requiring PRN hydralazine - Pt says she is usually normotensive at home, so this might be in the setting of steroid administration - Start 5mg norvasc, which pt can continue on discharge and follow up with PCP (4) Hyponatremia Current Visit: Yes Status: Acute Code(s): E87.1 - HYPO-OSMOLALITY AND HYPONATREMIA SNOMED Code(s): 26376778 Comment: - Hyponatremia improved with IVF (5) DVT prophylaxis Current Visit: No Status: Acute Code(s): ANB7360 - SNOMED Code(s): 602276608 Comment: SQ Heparin (6) Full code status Current Visit: No Status: Acute Code(s): Z78.9 - OTHER SPECIFIED HEALTH STATUS SNOMED Code(s): 659421405 Status and Disposition: Anticipate discharge to home today
[2018-02-25] MEDS: Azithromycin IV(*) 500 MG in NS 0.9% 250 ML* 250 ML IVPB SCH (15:39)
[2018-02-25 17:03] VITALS: BP 166/86
[2018-02-25] MEDS: Albuterol HFA INHALER* 8 gm MDI INH PRN (17:51)
--- NOTE | 2018-02-26 05:37 | DS ---
AMENDED REPORT NOW INCLUDES DESIGNATED COSIGNER ADDENDUM ALSO INCLUDED ON THIS REPORT CC: Patricia Jerome NP * DISCHARGE SUMMARY: DATE OF ADMISSION: 02/22/18 DATE OF DISCHARGE: 02/25/18 PROVIDER: Ashwini Macario NP. ATTENDING: Dr. Wilkerson * (dictated by Ashwini Macario NP). PRIMARY CARE PROVIDER: [facility], Patricia Jerome NP. PRIMARY DIAGNOSIS: Community-acquired pneumonia. SECONDARY DIAGNOSES: 1. Chronic obstructive pulmonary disease. 2. Hypertension. 3. Hyponatremia. DISCHARGE MEDICATIONS: 1. Atrovent 0.5 mg inhalation q.6 hours p.r.n. 2. Anoro 62.5/25. 3. Ellipta 1 puff INH daily. 4. Zoloft 25 mg p.o. daily. 5. Ventolin 1 inhalation p.r.n. 6. Prednisone 40 mg p.o. daily for an additional 2 days. 7. Norvasc 5 mg p.o. daily. 8. Vantin 200 mg p.o. q.12 hours for an additional 11 days. DIAGNOSTIC STUDIES WHILE IN THE HOSPITAL: Chest x-ray that showed advanced chronic obstructive pulmonary disease and emphysema with superimposed acute pneumonia at the right lung base. HOSPITAL COURSE: Ms. Price is a 77-year-old female with a past medical history of COPD, who presented to the ED with a 3 to 4-day history of increased shortness of breath and cough. The patient was seen at her primary care provider's office a few days prior to presenting to the ED and was placed on amoxicillin and 20 mg of prednisone at that time; however, she did not see any improvement in her shortness of breath and cough and therefore decided to come to the ED for further evaluation. She does have a baseline productive cough with clear secretions; however, she noticed that her secretions had been green over the past few days. She also reported increased fatigue and chest pain that occurred with a deep breath in. as well as having a fever; however, she was afebrile upon presentation to the ED. The patient had a chest x-ray, which showed right lower lobe pneumonia. She also had an elevated white blood cell count to 17. The patient was started on ceftriaxone and azithromycin and admitted to the hospitalist service for management of her community-acquired pneumonia. The patient was also started on prednisone 40 mg daily. The next day, the patient reported marked improvement of her shortness of breath and cough and by day of discharge, the patient felt like she was at her baseline level of function. The patient is on home O2 of 3 L normally and she was satting 100% on 3 L on the day of discharge. The patient did also walk in the hallway using her home O2 and felt that she was at her baseline while doing this as well. The patient remained afebrile throughout the duration of her hospital stay and her white count trended down to normal. Of note, the patient originally had a mild hyponatremia to 127; however, this resolved with IV fluids. Also of note, the patient was hypertensive throughout her stay, as high as SBP 188, requiring p.r.n. hydralazine at times. The patient reports that she is normally normotensive and I suspect that this could be in the setting of steroid administration. I have started her on Norvasc 5 mg daily and she has been instructed to have close followup with her primary care provider to monitor her blood pressure. The patient has completed a three day course of azithromycin and will be discharged on Vantin 200 mg q.12 hours for 11 more days to complete a 14 day course of a cephalosporin as well as 2 additional days of 40 mg of prednisone to complete a 5-day course. DISPOSITION: The patient is stable for discharge to home. DIET: Regular diet. ACTIVITY: As tolerated. FOLLOWUP: The patient was instructed to follow up with her primary care provider in 4 to 7 days; at which time they can address if she has a need for ongoing antihypertensive therapy. TIME SPENT: Time spent on this discharge was 45 minutes. ADDENDUM: DISCHARGE MEDICATIONS: 1. Atrovent 0.5 mg inhalation q.6 hours p.r.n. 2. Anoro 62.5/25. 3. Ellipta 1 puff INH daily. 4. Zoloft 25 mg p.o. daily. 5. Ventolin 1 inhalation p.r.n. daily. 6. Prednisone 40 mg p.o. daily for an additional 2 days. 7. Norvasc 5 mg p.o. daily. 8. Vantin 200 mg p.o. q.12 hours for an additional 11 days. ASHWINI MACARIO, [employer] [id number]/[facility] #: [id number] [id number]/CPS #: [id number] [facility] MEMORIAL HOSPITALBianca
--- NOTE | 2018-02-26 05:45 | DS ---
DISCHARGE SUMMARY: ADDENDUM: DISCHARGE MEDICATIONS: 1. Atrovent 0.5 mg inhalation q.6 hours p.r.n. 2. Anoro 62.5/25. 3. Ellipta 1 puff INH daily. 4. Zoloft 25 mg p.o. daily. 5. Ventolin 1 inhalation p.r.n. daily. 6. Prednisone 40 mg p.o. daily for an additional 2 days. 7. Norvasc 5 mg p.o. daily. 8. Vantin 200 mg p.o. q.12 hours for an additional 11 days. NETO MACARIO, ALTAGRACIA [id number]/[facility] #: [id number] MTDBianca
== END 2018-02-25 19:00 | disposition home or self-care (01) | DRG 139 ==
LOC: ED 13:29 → MED 19:48
PROVIDERS: ADMIT Pediatrics; ATTEND Internal Medicine
DX: J18.9 Pneumonia, unspecified organism (principal); J44.1 Chronic obstructive pulmonary disease with (acute) exacerbation; E87.1 Hypo-osmolality and hyponatremia; Z99.81 Dependence on supplemental oxygen; E86.0 Dehydration; I10 Essential (primary) hypertension; F41.8 Other specified anxiety disorders; Z79.51 Long term (current) use of inhaled steroids; Z79.52 Long term (current) use of systemic steroids; Z79.899 Other long term (current) drug therapy; Z82.49 Family history of ischemic heart disease and other diseases of the circulatory system; Z80.0 Family history of malignant neoplasm of digestive organs; Z80.3 Family history of malignant neoplasm of breast; Z80.49 Family history of malignant neoplasm of other genital organs; Z87.891 Personal history of nicotine dependence
CPT/HCPCS: 36415; 71046; 80048; 80053; 81003; 81015; 83605; 83880; 84145; 84484; 85025; 86140; 87040; 87086; 87899; 93005; 94640; 99284; A9270-GY; J0360; J0456; J0696; J1644; J2930; J7512